=== PATIENT | female | born 1945 | race African-American/Black ===

== ENCOUNTER 2018-02-09 12:03 | Emergency (ER) | payer MEDICARE, OTHER ==
[~2018-02-09] VITALS: Ht 160 cm; Wt 77.0 kg
[~2018-02-09 12:03] MED LIST: ASPI-1079 PO; DOCU-150 PO; LISINOPRIL PO; SIMVASTATIN PO
[2018-02-09] MEDS ORDERED: BACITRACIN ZINC OINT UDPKT TOP ONE (15:00)
[2018-02-09] MEDS ORDERED: TETANUS, DIPHTHERIA, PERTUSSIS VAC/PF 0.5ML (>7YR OLD) IM ONE (15:00)
[2018-02-09 15:20] VITALS: BP 162/72
== END 2018-02-09 15:21 | disposition home or self-care (01) ==
LOC: ER 12:59
DX: S61.012A Laceration without foreign body of left thumb without damage to nail, initial encounter (principal); W26.8XXA Contact with other sharp object(s), not elsewhere classified, initial encounter; Y93.E8 Activity, other personal hygiene; Y92.9 Unspecified place or not applicable; Z79.82 Long term (current) use of aspirin; I10 Essential (primary) hypertension; E78.00 Pure hypercholesterolemia, unspecified; Z23 Encounter for immunization
CPT/HCPCS: 90471; 90715; 99283

== ENCOUNTER 2020-11-12 13:34 | Emergency (ER) | payer OTHER ==
[~2020-11-12] VITALS: Ht 162.6 cm; Wt 80.0 kg
[2020-11-12 13:37] VITALS: BP 143/67
[2020-11-12] MEDS ORDERED: ACETAMINOPHEN 325MG TABLET PO STA (15:00)
[2020-11-12 15:11] LABS: BASOPHILS % 0.7 % (0.0-2.0); EOSINOPHILS % 4.8 % (0.0-5.0); HEMATOCRIT. 33.8 % (36.0-48.0); HEMOGLOBIN. 11.1 g/dL (12.0-16.0); LYMPHOCYTES % 32.5 % (20.0-50.0); MEAN CORPUSCULAR HEMOGLOBIN 28.5 pg (28.0-32.0); MEAN CORPUSCULAR VOLUME 86.4 fL (81.0-99.0); MEAN PLATELET VOLUME 7.9 fl (7.4-10.4); MONOCYTES % 7.7 % (2.0-8.0); NEUTROPHILS % 54.3 % (40.0-76.0); PLATELET 265 x1000/uL (130-400); RED BLOOD CELL COUNT 3.91 mill/uL (4.2-5.4); RED CELL DISTRIBUTION WIDTH 13.5 % (11.6-14.6)
[2020-11-12 15:25] LABS: CHLORIDE 105 mEq/L (98-107)
[2020-11-12 15:29] LABS: CLARITY URINE CLEAR (CLEAR); COLOR URINE YELLOW (YELLOW); KETONES URINE NEGATIVE (NEGATIVE); LEUKOCYTE ESTERASE URINE NEGATIVE (NEGATIVE); NITRITE URINE NEGATIVE (NEGATIVE); OCCULT BLOOD URINE NEGATIVE (NEGATIVE); PROTEIN URINE NEGATIVE (NEGATIVE); SPECIFIC GRAVITY URINE 1.016 (1.005-1.030); UROBILINOGEN URINE 0.2 E.U./dL (0.2-1.0)
[2020-11-12] MEDS ORDERED: ASPIRIN 325MG EC TABLET PO NR (16:00)
== END 2020-11-12 16:41 | disposition left against medical advice (07) ==
LOC: ER 13:38
DX: I24.9 Acute ischemic heart disease, unspecified (principal); R10.13 Epigastric pain; D64.9 Anemia, unspecified; E78.00 Pure hypercholesterolemia, unspecified; I10 Essential (primary) hypertension; E03.9 Hypothyroidism, unspecified
CPT/HCPCS: 36415; 71045; 74176; 80053; 81003; 83880; 84484; 85025; 93005; 99285

== ENCOUNTER 2025-02-11 09:42 | Emergency (ER) | payer OTHER ==
[~2025-02-11] VITALS: Ht 161.3 cm; Wt 78.5 kg
[~2025-02-11 09:42] MED LIST changes: -DOCU-150 PO; +DOCU-422 PO
[2025-02-11 09:44] VITALS: BP 150/66; RESP 16; TEMP 36.8; O2SAT 98
[2025-02-11 09:47] VITALS: PULSE 92; O2SAT 98
[2025-02-11 10:26] VITALS: TEMP 98.3
[2025-02-11] MEDS: ACETAMINOPHEN 325MG TABLET PO ONE (10:26)
== END 2025-02-11 10:27 | disposition home or self-care (01) ==
LOC: ER 09:42
DX: M54.50 Low back pain, unspecified (principal); I10 Essential (primary) hypertension; E78.00 Pure hypercholesterolemia, unspecified; N28.9 Disorder of kidney and ureter, unspecified; Z79.82 Long term (current) use of aspirin; Z86.39 Personal history of other endocrine, nutritional and metabolic disease
CPT/HCPCS: 99282